=== PATIENT | male | born 1940 | race Caucasian/White ===

== ENCOUNTER 2017-08-15 10:23 | Emergency (ER) | payer MEDICARE ==
[2017-08-15 10:38] VITALS: BP 116/63
--- NOTE | 2017-08-15 11:01 | UC ---
GI Bleed HPI - HPI Summary HPI Summary: Pt presents with black stools starting 3 days ago. He tells me that for the last 2 months he has had intermittent loose stools/diarrhea. 3 days ago he had a BM and noticed his stool was "mushy" and "jet black". Yesterday his BM was normal. Today his stool was black again. He takes a daily ASA and tells me that for the last 3 weeks he has been taking a motrin at bedtime. Denies fever, chills, SOB, chest pain, abdominal pain, n/v, dysuria, or back pain. - History Of Current Complaint Chief Complaint: UCGU Stated Complaint: DISCOLORED STOOL Time Seen by Provider: 08/15/17 11:00 Onset/Duration: Sudden Onset Severity: Black Tarry Stool Severity Currently: None Pain Intensity: 0 - Allergies/Home medications Allergies/Adverse Reactions: Allergies Allergy/AdvReac Type Severity Reaction Status Date / Time Iodinated Contrast- Oral and Allergy Rash And Verified 08/15/17 10:30 IV Dye Itching iodine Allergy Rash And Verified 08/15/17 10:30 Itching Penicillins Allergy Unknown Verified 08/15/17 10:30 Reaction Details iodine contrast media Allergy See Comment Uncoded 08/15/17 10:30 Home Medications: Home Medications Cholestyramine (with Sugar) [Questran Packet] 4 gm PO DAILY 08/15/17 [History Confirmed 08/15/17] PMH/Surg Hx/FS Hx/Imm Hx Cardiovascular History: Hypertension Psychological History: Anxiety - Surgical History Surgical History: Yes Surgery Procedure, Year, and Place: app. R eye surgery for macular "hole". cataract removal - Family History Known Family History: Positive: Cardiac Disease, Hypertension - Social History Occupation: Retired Lives: With Family Alcohol Use: Daily Alcohol Amount: 5-6 drinks q daily Substance Use Type: None Smoking Status (MU): Light Every Day Tobacco Smoker Type: Cigarettes Amount Used/How Often: 5-6 cig/day - Immunization History Most Recent Tetanus Shot: 2009 Review of Systems Constitutional: Negative Skin: Negative Respiratory: Negative Cardiovascular: Negative Gastrointestinal: Diarrhea Genitourinary: Negative Neurovascular: Negative Neurological: Negative Psychological: Negative All Other Systems Reviewed And Are Negative: Yes Physical Exam - Summary Physical Exam Summary: GENERAL: NAD. WDWN. No pain distress. SKIN: No rashes, sores, lesions, or open wounds. NECK: Supple. Nontender. No lymphadenopathy. CHEST: CTAB. No r/r/w. No accessory muscle use. Breathing comfortably and in no distress. CV: RRR. Without m/r/g. Pulses intact. Brisk cap refill. ABDOMEN: Soft. NTTP. No distention or guarding. No organomegaly. No CVA tenderness. Bowel sounds present NEURO: Alert. CN II-XII grossly intact. PSYCH: Age appropriate behavior. Triage Information Reviewed: Yes Vital Signs: Initial Vital Signs Temp 98.4 F 08/15/17 10:33 Pulse 65 08/15/17 10:33 Resp 18 08/15/17 10:33 BP 116/63 08/15/17 10:33 Pulse Ox 96 08/15/17 10:33 Bleed Course/Dx - Course Course Of Treatment: Advised pt to seek further eval in the ED for potential GI bleed. He was agreeable to this and elected to go by private car. - Differential Dx/Diagnosis Provider Diagnoses: Black tarry stool Discharge - Sign-Out/Discharge Documenting (check all that apply): Discharge/Admit/Transfer - Discharge Plan Condition: Stable Disposition: HOME Referrals: Edy Au MD [Primary Care Provider] - Additional Instructions: Please go to the ER for further evaluation of your black stools - Billing Disposition and Condition Condition: STABLE Disposition: HOME
== END 2017-08-15 11:19 | disposition home or self-care (01) ==
LOC: UCEAST 10:23
DX: K92.1 Melena (principal); Z79.82 Long term (current) use of aspirin; I10 Essential (primary) hypertension; F41.9 Anxiety disorder, unspecified; Z88.0 Allergy status to penicillin; Z91.041 Radiographic dye allergy status; F17.210 Nicotine dependence, cigarettes, uncomplicated
CPT/HCPCS: 99212; G0463

== ENCOUNTER 2017-08-16 05:42 | Observation (INO) | payer MEDICARE ==
[2017-08-16 07:08] LABS: ABS Basophils 0 10^3/ul (0-0.2); ABS Eosinophils 0.1 10^3/ul (0-0.6); ABS Monocytes 0.4 10^3/ul (0-0.8); ABS Neutrophils 3.8 10^3/ul (1.5-7.7); ABS Nucleated RBC 0 10^3/ul; Eosinophil % 2.3 % (0-6); Hematocrit 36 % (42-52); Hemoglobin 12.5 g/dl (14.0-18.0); Lymphocyte % 19.5 % (25-47); Mean Corpuscular HGB Conc 35 g/dl (31-36); Mean Corpuscular Hemoglobin 34 pg (27-31); Mean Corpuscular Volume 98 fL (80-94); Mean Platelet Volume 9.7 um3 (7.4-10.4); Nucleated Red Blood Cells % 0.1; Platelet Count 222 10^3/ul (150-450); Red Blood Count 3.65 10^6/ul (4.0-5.4); Red Cell Distribution Width 13 % (10.5-15); White Blood Count 5.4 10^3/ul (3.5-10.8)
[2017-08-16 07:12] LABS: INR 0.83 (0.77-1.02)
[2017-08-16 07:18] LABS: EGFR Non-African American 59.6 (>60)
[2017-08-16] MEDS ORDERED: Pantoprazole IV* 40 MG IV ONE (07:45)
--- NOTE | 2017-08-16 08:01 | ED ---
GI/ HPI - HPI Summary HPI Summary: Patient here with melena 2 days. He reports he's had diarrhea for the past 6 months. This has been reviewed with his PCP who feels he has anxiety triggering diarrhea. He has xanax which he takes for anxiety but this does not help his diarrhea. He was seen by a GI specialist 1 month ago who prescribed a "pack of powder" for him to take for 2 weeks -he took this for 4 days only as he reports it helped for the first couple days and then stopped helping after that. He went back to GI and they prescribed a different medication that he tried and he said helped for a couple days and then stopped helping so again he stopped taking it. He's had a colonoscopy about 2 years ago without any abnormal findings. He thinks he may have had an endoscope in the past but is not sure. He admits to daily aspirin 81 mg and nightly Aleve PM to help him sleep. He also smokes daily and drinks about 8 ounces of bourbon nightly. He' s been under increased stress recently as his is in the hospital where she has multiple injuries on top of dementia. He's been staying with her nightly. He denies nausea, vomiting, fever, chills, lethargy, rapid heart rate, chest pain, shortness of breath, vomiting. He does wake in the morning hungry at times with "hunger pains". This improves with eating. He denies pain with eating and has not tried any antacids or PPI's on his own. - History of Current Complaint Chief Complaint: EDGIBleed Time Seen by Provider: 08/16/17 06:21 Stated Complaint: DIARRHEA Hx Obtained From: Patient Pain Intensity: 0 - Allergy/Home Medications Allergies/Adverse Reactions: Allergies Allergy/AdvReac Type Severity Reaction Status Date / Time Iodinated Contrast- Oral and Allergy Rash And Verified 08/15/17 10:30 IV Dye Itching iodine Allergy Rash And Verified 08/15/17 10:30 Itching Penicillins Allergy Unknown Verified 08/15/17 10:30 Reaction Details iodine contrast media Allergy See Comment Uncoded 08/15/17 10:30 Home Medications: Home Medications Aspirin EC TAB* [Ecotrin EC Low Dose 81 MG*] 81 mg PO DAILY 08/16/17 [History Confirmed 08/16/17] PMH/Surg Hx/FS Hx/Imm Hx Previously Healthy: Yes Endocrine/Hematology History: Denies: Hx Anticoagulant Therapy - ASA 81 mg daily, Hx Blood Disorders, Hx Blood Transfusions, Hx Diabetes, Hx Thyroid Disease, Hx Anemia, Hx Unexplained Bleeding, Hx Coagulopothy Cardiovascular History: Reports: Hx Hypertension, Other Cardiovascular Problems/ Disorders - low HR - chronic,unremarkable per cards per pt; stress test norm per pt Respiratory History: Reports: Hx Sleep Apnea - CPAP Denies: Hx Asthma, Hx Chronic Obstructive Pulmonary Disease (COPD) GI History: Reports: Other GI Disorders - chronic diarrhea x 6 months; elev bili (chronic) Denies: Hx Cirrhosis, Hx Crohn's Disease, Hx Diverticulosis, Hx Gall Bladder Disease, Hx Gastroesophageal Reflux Disease, Hx Gastrointestinal Bleed, Hx Hiatal Hernia, Hx Irritable Bowel, Hx Ulcer History: Reports: Other Problems/Disorders - intermittent hematuria - seen by urology/scope normal Sensory History: Reports: Hx Contacts or Glasses Opthamlomology History: Reports: Hx Contacts or Glasses Psychiatric History: Reports: Hx Anxiety - xanax TID PRN - Surgical History Surgery Procedure, Year, and Place: appy. R eye surgery for macular "hole". cataract removal Infectious Disease History: No Infectious Disease History: Denies: Hx Hepatitis, Hx Human Immunodeficiency Virus (HIV), History Other Infectious Disease, Traveled Outside the [place] in Last 30 Days - Family History Known Family History: Positive: Cardiac Disease, Hypertension - Social History Occupation: Retired Lives: With Family - has of 50+ yrs - in hospital currently Alcohol Use: Daily Alcohol Amount: 8oz bourbon daily Hx Substance Use: No Substance Use Type: Reports: None Hx Tobacco Use: Yes Smoking Status (MU): Current Every Day Smoker Type: Cigarettes Amount Used/How Often: 5-10 cig/day - depends on stress level Review of Systems Constitutional: Negative - no other areas of bleeding Negative: Fever, Chills, Fatigue Cardiovascular: Negative Negative: Palpitations, Chest Pain Respiratory: Negative Negative: Shortness Of Breath, Cough Positive: Other. Negative: Abdominal Pain, Vomiting, Diarrhea, Nausea Genitourinary: Other - intetrmittent hematuria - painless - assessed by urology Musculoskeletal: Negative Skin: Negative Negative: Bruising Neurological: Negative Positive: Anxious All Other Systems Reviewed And Are Negative: Yes Physical Exam Triage Information Reviewed: Yes Vital Signs On Initial Exam: Initial Vitals Temp Pulse Resp BP Pulse Ox 97.8 F 58 20 125/86 98 08/16/17 05:45 08/16/17 05:45 08/16/17 05:45 08/16/17 05:45 08/16/17 05:45 Vital Signs Reviewed: Yes Appearance: Positive: Well-Appearing, No Pain Distress, Well-Nourished Skin: Positive: Warm, Skin Color Reflects Adequate Perfusion, Dry - no ecchymosis Head/Face: Positive: Normal Head/Face Inspection Eyes: Positive: Normal, EOMI, Conjunctiva Clear - anicteric sclera ENT: Positive: Normal ENT inspection, Hearing grossly normal, Pharynx normal Neck: Positive: Supple, Nontender Respiratory/Lung Sounds: Positive: Clear to Auscultation, Breath Sounds Present Cardiovascular: Positive: Pulses are Symmetrical in both Upper and Lower Extremities, Bradycardia, S1, S2. Negative: Murmur, Rub, Leg Edema Left, Leg Edema Right Abdomen Description: Positive: Nontender, No Organomegaly, Soft Bowel Sounds: Positive: Present, Other - no rectal bleeding per external exam Musculoskeletal: Positive: Normal, Strength/ROM Intact Neurological: Positive: Normal, Sensory/Motor Intact, Alert, Oriented to Person Place, Time, CN Intact II-III Psychiatric: Positive: Anxious Diagnostics - Vital Signs Vital Signs Temp Pulse Resp BP Pulse Ox 08/16/17 07:23 48 112/62 96 08/16/17 07:00 49 96 08/16/17 06:55 52 116/68 96 08/16/17 06:23 52 114/64 97 08/16/17 06:22 55 96 08/16/17 05:45 97.8 F 58 20 125/86 98 - Laboratory Lab Results: Lab Results 08/16/17 08/16/17 08/16/17 Range/Units 06:55 06:55 06:55 WBC 5.4 (3.5-10.8) 10^3/ul RBC 3.65 L (4.0-5.4) 10^6/ul Hgb 12.5 L (14.0-18.0) g/dl Hct 36 L (42-52) % MCV 98 H (80-94) fL MCH 34 H (27-31) pg MCHC 35 (31-36) g/dl RDW 13 (10.5-15) % Plt Count 222 (150-450) 10^3/ul MPV 9.7 (7.4-10.4) um3 Neut % (Auto) 70.5 (38-83) % Lymph % (Auto) 19.5 L (25-47) % [place] % (Auto) 7.1 H (0-7) % Eos % (Auto) 2.3 (0-6) % Baso % (Auto) 0.6 (0-2) % Absolute Neuts (auto) 3.8 (1.5-7.7) 10^3/ul Absolute Lymphs (auto) 1.0 (1.0-4.8) 10^3/ul Absolute Monos (auto) 0.4 (0-0.8) 10^3/ul Absolute Eos (auto) 0.1 (0-0.6) 10^3/ul Absolute Basos (auto) 0 (0-0.2) 10^3/ul Absolute Nucleated RBC 0 10^3/ul Nucleated RBC % 0.1 INR (Anticoag Therapy) 0.83 (0.77-1.02) APTT 30.0 (26.0-36.3) seconds Sodium 137 L (139-145) mmol/L Potassium 3.7 (3.5-5.0) mmol/L Chloride 104 (101-111) mmol/L Carbon Dioxide 28 (22-32) mmol/L Anion Gap 5 (2-11) mmol/L BUN 27 H (6-24) mg/dL Creatinine 1.19 H (0.67-1.17) mg/dL Est GFR ( Amer) 76.6 (>60) Est GFR (Non-Af Amer) 59.6 (>60) BUN/Creatinine Ratio 22.7 H (8-20) Glucose 114 H (70-100) mg/dL Calcium 9.0 (8.6-10.3) mg/dL Total Bilirubin 2.10 H (0.2-1.0) mg/dL AST 19 (13-39) U/L ALT 17 (7-52) U/L Alkaline Phosphatase 47 (34-104) U/L Total Protein 5.9 L (6.4-8.9) g/dL Albumin 3.7 (3.2-5.2) g/dL Globulin 2.2 (2-4) g/dL Albumin/Globulin Ratio 1.7 (1-3) Blood Type Antibody Screen 08/16/17 Range/Units 06:55 WBC (3.5-10.8) 10^3/ul RBC (4.0-5.4) 10^6/ul Hgb (14.0-18.0) g/dl Hct (42-52) % MCV (80-94) fL MCH (27-31) pg MCHC (31-36) g/dl RDW (10.5-15) % Plt Count (150-450) 10^3/ul MPV (7.4-10.4) um3 Neut % (Auto) (38-83) % Lymph % (Auto) (25-47) % [place] % (Auto) (0-7) % Eos % (Auto) (0-6) % Baso % (Auto) (0-2) % Absolute Neuts (auto) (1.5-7.7) 10^3/ul Absolute Lymphs (auto) (1.0-4.8) 10^3/ul Absolute Monos (auto) (0-0.8) 10^3/ul Absolute Eos (auto) (0-0.6) 10^3/ul Absolute Basos (auto) (0-0.2) 10^3/ul Absolute Nucleated RBC 10^3/ul Nucleated RBC % INR (Anticoag Therapy) (0.77-1.02) APTT (26.0-36.3) seconds Sodium (139-145) mmol/L Potassium (3.5-5.0) mmol/L Chloride (101-111) mmol/L Carbon Dioxide (22-32) mmol/L Anion Gap (2-11) mmol/L BUN (6-24) mg/dL Creatinine (0.67-1.17) mg/dL Est GFR ( Amer) (>60) Est GFR (Non-Af Amer) (>60) BUN/Creatinine Ratio (8-20) Glucose (70-100) mg/dL Calcium (8.6-10.3) mg/dL Total Bilirubin (0.2-1.0) mg/dL AST (13-39) U/L ALT (7-52) U/L Alkaline Phosphatase (34-104) U/L Total Protein (6.4-8.9) g/dL Albumin (3.2-5.2) g/dL Globulin (2-4) g/dL Albumin/Globulin Ratio (1-3) Blood Type O Positive Antibody Screen Negative Result Diagrams: 08/16/17 06:55 08/16/17 06:55 Lab Statement: Any lab studies that have been ordered have been reviewed, and results considered in the medical decision making process. GIGU Course/Dx - Course Course Of Treatment: Patient's labs reveal slight decrease in H&H from previous labs in April 2017. Coags are normal as are LFT's. Continues to have elevated bilirubin (pt reports this is chronic - Gilbert's syndrome?). His vital signs do not indicate acute hemorrhage. He denies abdominal pain but does report morning hunger pains (duodenal bleed?). With positive stool occult blood test, protonix was initiated here in the ED and patient will be admitted to hospital service with consult from GI later today (spoke w/ Dr. Edgar and Dr. Diana). Patient is reluctant to come into the hospital as he has been caring for his however he eventually agrees. Will initiate IV fluids to keep IV line open as well as WAM protocol as he admits to drinking daily - no concerns at this time and he has taken a xanax already today - asked him to keep staff abreast his anxiety sx so we may provide medication PRN. Will keep patient NPO in the meantime in the event he has an endoscope today. - Diagnoses Provider Diagnoses: GI bleed, EtOH dependence Discharge - Sign-Out/Discharge Documenting (check all that apply): Discharge/Admit/Transfer - Discharge Plan Condition: Stable Disposition: ADMITTED TO [facility] - Billing Disposition and Condition Condition: STABLE Disposition: [facility] – [place], [place]
[2017-08-16] MEDS ORDERED: NS 0.9% 1000 ML* 1,000 ML IV SCH (09:00)
[2017-08-16] MEDS ORDERED: ALPRAZolam TAB* 0.5 MG PO PRN (10:01)
[2017-08-16] MEDS ORDERED: Mouth Piece, Nicotine* 1 EACH CARTRIDGE INH PRN (10:04)
[2017-08-16] MEDS ORDERED: Nicotine Inhaler* 10 MG AMP INH PRN (10:05)
[2017-08-16] MEDS ORDERED: LORazepam TAB(*) 1 MG PO SCH (11:00)
[2017-08-16] MEDS: NS 0.9% 1000 ML* 1,000 ML IV SCH ×2 (12:27→23:22)
[2017-08-16] MEDS: Pantoprazole IV* 80 MG in NS 0.9% 250 ML* 250 ML IVPB SCH (12:27)
[2017-08-16 12:31] LABS: Hematocrit 40 % (42-52); Hemoglobin 13.7 g/dl (14.0-18.0)
[2017-08-16] MEDS ORDERED: Midazolam* 1 MG/ML 10 ML VIAL (10 MG) ONE (13:55)
[2017-08-16] MEDS ORDERED: fentaNYL* 50 MCG/ML 2 ML VIAL (100 MCG VIAL) ONE (13:55)
[2017-08-16 18:37] LABS: Hematocrit 39 % (42-52); Hemoglobin 13.2 g/dl (14.0-18.0)
--- NOTE | 2017-08-16 19:38 | HP ---
CC: Dr. Edy Au * HISTORY AND PHYSICAL: DATE OF ADMISSION: 08/16/17 PRIMARY CARE PROVIDER: Dr. Edy Au. ATTENDING PHYSICIAN: Dr. Deanna Diana * (dictated by Paola Streeter NP). CHIEF COMPLAINT: Dark tarry diarrhea. HISTORY OF PRESENT ILLNESS: Mr. Godfrey is a 77-year-old male with a past medical history significant for hypertension, who presented to the emergency room with complaints of dark tarry diarrhea. The patient states that he had 2 stools 3 and 4 days ago that were dark and tarry. He reports yesterday and today that his stools were no longer dark and tarry. He denies any fevers, chills, chest pain, cough, shortness of breath, nausea, vomiting. He reports diarrhea for 6 months since his fell and fractured her hip. He states that he had been following with GI and his primary care doctor, who felt that the diarrhea may be secondary to anxiety. He states that he has tried a couple of medications that worked for few days and then stopped working, so he is no longer taking any medications for this. The patient also states he had 1 episode of possible hematuria few days ago, but this has resolved. The patient is anxious right now as his has fallen and fractured her other hip and is currently in the hospital. The patient states that he takes a baby aspirin daily in addition to Aleve PM nightly to help him sleep. He denies any Motrin or ibuprofen use. Due to his dark stools, he decided to present to the emergency room for further evaluation of his symptoms. While in the emergency room, the patient had labs showing a slight drop in his hemoglobin and hematocrit from his previous labs that were done approximately 4 months ago. He received normal saline and was given IV Protonix. He had a stool for occult blood that was positive. His total bilirubin that is elevated , but this is chronically elevated per the patient. Due to the patient's suspected GI bleed, the hospitalists were asked to evaluate him for admission. PAST MEDICAL HISTORY: 1. Hypertension. 2. Chronically elevated bilirubin level. PAST SURGICAL HISTORY: 1. Status post appendectomy. 2. Status post right eye surgery for repair of macular hole. 3. Status post bilateral cataract extractions. MEDICATIONS: Include: 1. Lisinopril 40 mg oral daily. 2. Chlorthalidone 12.5 mg oral daily. 3. Aspirin 81 mg oral daily. 4. Xanax 0.5 mg t.i.d. to q.i.d. as needed for anxiety. 5. Triamcinolone 0.1% cream topically twice daily as needed. ALLERGIES: PENICILLIN and IODINE. FAMILY HISTORY: The patient's mother passed at age 85 from myocardial infarction. Denies any family history of diabetes mellitus. The patient's father had a history of lung cancer and brother with a history of colon cancer. SOCIAL HISTORY: The patient smokes 5 to 10 cigarettes daily and he has smoked for many years. He drinks 6 to 8 ounces of bourbon almost daily. He denies recreational drug use. His Kesha Godfrey or his daughter, Yasmeen Hamlin will be his surrogate decision makers in the event he is unable to make decisions for himself. REVIEW OF SYSTEMS: I performed an 11-point review of systems, all the pertinent positives and negatives are mentioned in the history of present illness. The remaining review of systems are negative. PHYSICAL EXAMINATION GENERAL APPEARANCE: The patient is alert, pleasant, and appears to be in no acute distress. VITAL SIGNS: Temperature 97.8, heart rate 50, respiratory rate 18, O2 sat 97% on room air, blood pressure 108/64. HEENT: Normocephalic, atraumatic. Pupils are equal and reactive to light. Extraocular movements are intact. RESPIRATORY: There is no accessory muscle use. The lungs are clear to auscultation bilaterally. CARDIOVASCULAR: Regular rate and rhythm. S1 and S2 present. There are no murmurs, rubs, or gallops heard. ABDOMEN: Soft, nontender, nondistended. Bowel sounds present x4. EXTREMITIES: There is no extremity edema. DP and PT pulses are 2+ and symmetric. MUSCULOSKELETAL: There is no clubbing or cyanosis noted. The patient exhibits good strength in all extremities. NEUROLOGICAL: The patient is alert and oriented x4. Cranial nerves II through XII are grossly intact. PSYCHOLOGICAL: The patient is calm and cooperative. He is little anxious about being admitted. SKIN: There are no rashes or abnormalities seen. DIAGNOSTIC STUDIES/LABORATORY DATA: Sodium 137, potassium 3.7, chloride 104, CO2 28, BUN 27, creatinine 1.19, glucose 114. White blood cell count 5.4, hemoglobin 12.5, hematocrit 36, and platelet count 222. Total bilirubin 2.10. Stool for occult blood positive. IMPRESSION: Mr. Godfrey is a 77-year-old male with past medical history significant for hypertension, who presents to the emergency room with complaints of dark tarry stools. He will be admitted as an inpatient for suspected upper gastrointestinal bleed. ASSESSMENT/PLAN: 1. Gastrointestinal bleed. Due to the dark color of the patient's stools, I suspect this is an upper gastrointestinal bleed. He has a slight drop in his hemoglobin and hematocrit from 14 and 40 respectively in April 2017 to 12.5 and 36 today. He will be seen in consultation by Dr. Edgar for possible endoscopy later today. I will keep him n.p.o. in case he has an endoscopy later today. He received IV bolus of Protonix in the emergency room. He will be started on a Protonix drip. He will have 2 large [address] IVs in place. We will check orthostatic vital signs. He will have his H and H trended every 6 hours. 2. Hypertension. In the setting of a possible GI bleed, we are going to hold the patient's chlorthalidone and lisinopril. 3. Elevated creatinine. The patient's creatinine is slightly elevated above his baseline. He will get IV fluids. We will recheck his labs in the morning. I suspect he is slightly dehydrated. 4. Anxiety. Continue as-needed Xanax. 5. Alcohol abuse. The patient drinks 6-8 ounces of bourbon daily. We will put him on a WAM protocol. 6. Tobacco abuse. Patient will have nicotine replacement available as needed. He has been encouraged to stop smoking. 7. Fluids, electrolytes and nutrition. The patient is n.p.o. 8. Code status. Full code. 9. DVT prophylaxis. The patient is at high risk and will have SCDs only. His chemical DVT prophylaxis is contraindicated in the setting of a GI bleed. 10. Disposition. Inpatient. TIME SPENT: Time for this admission was approximately 60 minutes, greater than half of that was spent with the patient discussing medications, past medical history and the events leading up to his arrival today and performing a physical examination. The case has been reviewed with the attending, Dr. Diana, who agrees with the plan of care. Reviewed by LEESA BEASLEY 08/17/1740 [id number]/[facility] #: [id number] CAROLANND
--- NOTE | 2017-08-16 22:39 | CONS ---
GASTROENTEROLOGY CONSULT: DATE: CONSULTING PHYSICIAN: Edy Au REASON FOR CONSULT: Melena beginning 5 or 6 days ago. 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 After a few days, it began to alarm him. He felt a little weak. There was no syncope. He came to the emergency room and was found to have heme-positive stool. His hemoglobin was 12.5 down from 14.0 three months ago and BUN was 27 up from 22. He is also taking a baby aspirin and Aleve each night (for the last 6 to 7 weeks ) and does drink considerable bourbon. He has never had any alcohol related medical issues. He is concurrently being seen as an outpatient for loose stools (also a complaint in 2004). Questran did not help. Xanax did not help. In May 2015, he had colonoscopy by Dr Jon because of reported family history of colon cancer. 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 It appeared low risk. PAST MEDICAL HISTORY: 1. Smoking - he continues 1/2 to 1 pack a day. Low-dose CT in March 2015 was negative. 2. Alcohol abuse - no sequelae. 3. History of heartburn - he recalls taking Prevacid a few years back for about a year. He is not taking anything currently. MEDICATIONS: As an outpatient: 1. Lisinopril 40. 2. Chlorthalidone 12.5. 3. Aspirin 81. 4. Aleve 220. 5. Xanax 0.5 t.i.d. 6. A recent trial of cholestyramine was ineffective. REVIEW OF SYSTEMS: It is notable in July 2004 when he had a colonoscopy, the listed indication was chronic diarrhea. He has also been evaluated for sleep apnea by Dr. Pedroza in 2008 and for hematuria by Dr. Fry. He is being treated for hypertension. He has had cataract surgery. There is no history of TB, hemoptysis, [place], syncope, arrhythmia, or blood thinners. Aortic ultrasound in September 2013 was negative. PHYSICAL EXAM: He is an older man with a slightly smoker's voice, anxious, in no acute distress. He has no adenopathy. Lungs are clear. Heart sounds are regular. The abdomen is symmetric, soft, and nontender. Rectal deferred. Extremities show no edema. Neurologic is nonfocal in regards to orientation, cranial nerves and movement of all 4 extremities. LABORATORY DATA: A followup CBC showed hemoglobin 13.7, hematocrit 40, MCV 98. INR is 0.83. Albumin 3.7. LFTs normal. Bilirubin 2.10, consistent with other results as in bilirubin 3.0 on 05/09/17 and 2.0 on 11/02/16. IMPRESSION AND PLAN: This 77-year-old man who recently began taking Aleve on top of a baby aspirin has had melena. He has not had any hemodynamic instability, but 5 days of melena should be investigated and an OBV admission appears prudent given multiple risk factors for GI bleeding and his age. [id number]/[facility] #: [id number] MTDD
[2017-08-17 01:18] LABS: Hematocrit 34 % (42-52)
[2017-08-17] MEDS: Pantoprazole IV* 80 MG in NS 0.9% 250 ML* 250 ML IVPB SCH ×2 (01:18→10:00)
[2017-08-17 03:25] VITALS: BP 108/54
[2017-08-17] MEDS ORDERED: Thiamine TAB* 100 MG TAB PO SCH (09:00)
[2017-08-17] MEDS ORDERED: Folic Acid TAB* 1 MG PO SCH (09:00)
[2017-08-17] MEDS ORDERED: Multivitamins/Minerals TAB PO SCH (09:00)
--- NOTE | 2017-08-17 12:24 | PRO ---
DATE: 08/16/17. - ROOM #[id number] REFERRING PHYSICIAN: Edy Au* PROCEDURE: Upper gastrointestinal endoscopy and CLOtest +Bx of gastric greater curvature and Weaver's segment. INDICATIONS: This 77-year-old man, reported black stools for 5 days. He felt little weak. This morning his stool was formed, very dark, but not as black as it had been preceding couple of days. He smokes half-a-pack a day and drinks considerable Tama. He also takes a baby aspirin and Aleve, a half to one each night over the last 6 to 8 weeks. He has been quite stressed as his was admitted to the hospital 9 days ago after fracturing the hip. The opposite hip was fractured 6 months ago. He says he took an acid griselda for about a year, 3 years ago. ENDOSCOPIST: Dr. Edgar. MEDICATIONS: Midazolam 10, fentanyl 75. FINDINGS: He is an older man, in no overt distress, although quite anxious asking many, many questions about hospital restrictions and regulations and where he could spend the night. He did agree that he would not be discharged today and not attempt to drive. EGD: Larynx - limited symmetric views. Esophagus - easily entered and the mucosa is normal in the upper and mid esophagus. The squamocolumnar junction is at 37 and is somewhat loose with a minimal hiatal hernia. During withdrawal 2 biopsies were taken at 38 cm from visually defined Weaver's segment. There was no ulcer there. There was no mass or nodule. Stomach - a papillated texture to the distal fundus and body was seen. There were no erosions or ulcers in the stomach. A CLOtest was taken and two biopsies of the greater curvature proximal antrum. There was an extrinsic compression apparent at 8 o'clock orientation in the mid antrum. It was smooth without any mucosal interruption and did not appear potentially related to any symptom. There were no ulcers or scars in the antrum. Duodenum - the bulb had a very prominent Abida's gland, has had folds with erythema. There was no blood in the bulb and no ulceration per se. Getting around the apex to the bulb was easy. In the third portion of the duodenum, mid portion at a 9 o'clock orientation, there was an ulcer seeming to be over the papilla or the area with the intramural common bile duct. It was 8 or 9 mm fairly, discretely punched out with a minimal red spot at the base. There was no clot or bleeding evident. It appeared benign with no surrounding abnormality. No biopsy there was indicated. IMPRESSION: 1. Small hiatal hernia. 2. 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 3. Gastritis - CLOtest pending. 4. Duodenal ulcer - atypical location, but appears typical peptic lesion, though it would be warranted to recheck in 2 to 3 months. Continuing the proton pump infusion and then twice a day PPI for 2 weeks as indicated. Would hold aspirin 5 to 7 days and discontinue Aleve permanently. Addendum: Weaver's benign and Clotest negative, SOB negative from digital rectal [id number] #: [id number] [facility]
--- NOTE | 2017-08-18 07:32 | DS ---
DISCHARGE SUMMARY: DATE OF ADMISSION: 08/16/17 DATE OF DISCHARGE: 08/17/17 HOSPITAL STATUS: Observation. PROVIDER: Vira Grewal NP ATTENDING PHYSICIAN: Dr. Neely * (report dictated by Vira Grewal NP). PRIMARY CARE PROVIDER: Dr. Edy Au. GI CONSULT: Dr. Edgar. DISCHARGE DIAGNOSES: 1. Upper gastrointestinal bleed, found to have a duodenal ulcer. 2. Weaver's esophagus. 3. Gastritis with a negative CLOtest. 4. Blood loss anemia. SECONDARY DIAGNOSES: 1. Hypertension. 2. Chronically elevated bilirubin level. DISCHARGE MEDICATIONS: 1. Lisinopril 40 mg p.o. daily. 2. Chlorthalidone 12.5 mg p.o. daily. 3. Xanax 0.5 mg t.i.d. to 4 times a day p.r.n. anxiety. 5. Triamcinolone 0.1% cream topical b.i.d., p.r.n. New medication: 1. Omeprazole 40 mg p.o. b.i.d. Medication on hold: 1. Aspirin 81 mg daily. Per the patient, he takes this prophylactically. He was recommended to hold it until he follows up with his primary care provider. HISTORY OF PRESENT ILLNESS AND HOSPITAL COURSE: Please see history and physical by Paola Fitzgerald NP for full admission details, but in summary, this is a 77-year-old male with a past medical history significant for hypertension, history of presented to the emergency department with complaints of black tarry stool on 08/16/17, reporting he had 2 stools 3 and 4 days ago that were black and tarry, reporting the day of admission and the prior day that his stools were no longer black and tarry. He denied any fever, chills, chest pain, dizziness, shortness of breath, nausea or vomiting. He reports he has had diarrhea for 6 months since his fell and fractured her hip, she is currently admitted to [facility] in the rehab unit. He reports he has been seen by GI through his primary care provider and thought the diarrhea was secondary to anxiety. Per the admission history and physical, the patient had reported one episode of possible hematuria few days ago, but this has since resolved. The patient reports that he takes baby aspirin in addition to Aleve PM. There is also a question of alcohol use. The patient was admitted to the hospitalist service for upper GI bleed. On admission, it was noted that his hemoglobin had dropped since April, as it was noted in April his hemoglobin was 14 and on admission yesterday was 12.5. H and H's were trended which remained stable throughout the hospitalization and there was no need for blood transfusion. He had an upper endoscopy by Dr. Edgar yesterday, which showed a duodenal ulcer, nonbleeding, Weaver's esophagus and gastritis. This morning is my first time meeting Mr. Godfrey. First thing this morning, I received a call from the nurse who stated the patient was very agitated and very upset as he wanted to be discharged at 7 a.m. this morning. He refused his morning blood work. I was not able to see the patient up until about 9 a.m. this morning in which the patient reported he was going to leave AMA unless I discharge him. Upon reviewing his labs and noted he did have a stable H and H at midnight as well as I spoke to supervisor assembling, Dr. Feng, the patient is stable for discharge to home. He has had no further dark bloody tarry stools. His H and H is stable. I did report to the patient it was noted that his creatinine was a little up from the last time it was checked back in April as it was noted to be 1.09 in April of this year and on admission was 1.19. He did receive some fluids, most likely this is secondary to dehydration as the patient reports that he has been having a lot of diarrhea and does not drink a lot of fluids. Again, the patient has refused to have labs drawn this morning. This kidney dysfunction was discussed with the patient and I did encourage the patient to stay to have his labs drawn this morning, but he is refusing at this time and states he will do it tomorrow or Tuesday as an outpatient and the results will go to Dr. Au. The patient reports that he is under a lot of stress with his currently in rehab and his grandson was recently diagnosed with cancer and is under a lot of stress. I have discussed with the patient that I would like him to follow up with his primary care provider within 4 to 7 days as well as supervisor assembling , Dr. Edgar, would like to see him back in the office. He has been given these numbers and a detailed discharge plan. I have asked the patient to hold his aspirin 81 mg daily until he sees his provider as he reports that he takes this for prophylactic reasons and does not have a history of coronary artery disease or stroke. DISCHARGE PLAN: 1. The patient is stable for discharge to home. 2. Follow up labs with a CBC and a BMP tomorrow or Tuesday with results to primary care provider. 3. Plan to hold aspirin 81 mg daily until followup with the primary. 4. Followup with Dr. Edgar. The patient was instructed to call his office for followup appointment. TIME SPENT: Approximately 60 minutes was spent on this discharge. VIRA GREWAL NP [id number]/[facility] #: [id number] SURAJ
== END 2017-08-17 09:55 | disposition home or self-care (01) ==
LOC: ED 05:42 → INTOOBSV 11:25 → MED 11:25
PROVIDERS: ADMIT Internal Medicine; ATTEND Internal Medicine
PROC: 0DB98ZX Excision of Duodenum, Via Natural or Artificial Opening Endoscopic, Diagnostic (ICD-10-PCS; principal; 2017-08-16)
PROC: 0DB58ZX Excision of Esophagus, Via Natural or Artificial Opening Endoscopic, Diagnostic (ICD-10-PCS; 2017-08-16)
DX: K92.2 Gastrointestinal hemorrhage, unspecified (principal); K22.719 Barrett's esophagus with dysplasia, unspecified; K29.70 Gastritis, unspecified, without bleeding; K26.9 Duodenal ulcer, unspecified as acute or chronic, without hemorrhage or perforation; F10.20 Alcohol dependence, uncomplicated; I10 Essential (primary) hypertension; E80.7 Disorder of bilirubin metabolism, unspecified; Z90.89 Acquired absence of other organs; Z79.82 Long term (current) use of aspirin; F41.9 Anxiety disorder, unspecified; D50.0 Iron deficiency anemia secondary to blood loss (chronic); F17.210 Nicotine dependence, cigarettes, uncomplicated
CPT/HCPCS: 36415; 80053; 82272; 85014; 85018; 85025; 85610; 85730; 86850; 86900; 86901; 87077; 88305; 96365; 96366; 99156; 99157; 99284; A9270-GY; G0378; J2250; J3010

== ENCOUNTER 2018-10-25 06:52 | Day surgery (SDC) | payer MEDICARE ==
--- NOTE | 2018-10-22 18:24 | HP ---
CC: Dr. Edy Au; Dr. Siddharth Tovar * ADMITTING HISTORY AND PHYSICAL: DATE OF ADMISSION: 10/25/18 ADMITTING DIAGNOSES: 1. Acute renal insufficiency. 2. Right hydronephrosis with possible mass, right proximal ureter. PLANNED PROCEDURES: Right retrograde, right ureteroscopy, and right stent insertion. SURGEON: Dr. Fry. ADMITTING HISTORY AND PHYSICAL: Braulio Godfrey is a 78-year-old gentleman with a history of chronic heavy smoking who was recently noted to have worsening renal function in the form of increased serum creatinine, which had increased from a baseline of 1.19 to 1.78 and subsequently 1.83. Renal sonogram had revealed severe right hydronephrosis and a CT scan revealed right hydronephrosis with increased density in the proximal right ureter consistent with mass or hemorrhage. Since he has not not had any gross hematuria, this is unlikely to represent hemorrhage and given his smoking history, he certainly would be at higher risk for urothelial carcinoma involving the ureter or renal pelvis. The other possibility is that this may represent a ureteropelvic junction obstruction, although I think this is the less likely possibility, although I cannot definitely see any dilatation of the proximal ureter. PAST MEDICAL HISTORY: Significant for: 1. Hypertension. 2. History of GI bleed secondary to ulcer. 3. Sleep apnea. 4. History of bradycardia. MEDICATIONS ON ADMISSION: 1. Chlorthalidone 12.5 mg daily. 2. Alprazolam 0.5 mg half to 1 tablet 4 times a day as needed. 3. Lisinopril 40 mg daily. 4. Omeprazole 40 mg twice a day. 5. CPAP device. ALLERGIES AND INTOLERANCES: 1. Intravenously administered IODINATED CONTRAST. 2. PENICILLIN. 3. CHANTIX. 4. PREVACID. PAST SURGICAL HISTORY: Significant for appendectomy. SOCIAL HISTORY: Smoking history: He is a chronic smoker with approximately 60 - pack-year smoking history. FAMILY HISTORY: Negative for bladder or kidney cancer. REVIEW OF SYSTEMS: He is, otherwise, in fairly good health. There is no history of diabetes mellitus or any other major systemic illness. He denies any chest pain or shortness of breath. His last cardiac evaluation was in January [address] Tovar and I have reviewed the notes of that visit, and it seems that in terms of a cardiac standpoint, he was in fairly stable condition. PHYSICAL EXAMINATION GENERAL: Reveals a pleasant elderly gentleman. VITAL SIGNS: Blood pressure is 146/84, pulse 84 per minute and regular, temperature 98 degrees Fahrenheit, oxygen saturation is 91% on room air. LUNGS: Clear bilaterally. CARDIOVASCULAR: Regular rate and rhythm. S1 and S2. ABDOMEN: Soft with mild right flank tenderness. IMPRESSION: A 78-year-old chronic heavy smoker with new onset of right hydronephrosis associated with worsening renal function and a possible mass in the right proximal ureter. PLAN: Right retrograde, right ureteroscopy, and right stent insertion. [id number]/CPS #: [id number] MTDD
[~2018-10-25 06:52] MED LIST: Buffered Lidocaine 1% SYRIN* 1 ML/SYRINGE INTRADERM ONE; Lactated Ringers 1000 ML Bag* 1,000 ML IV SCH
[2018-10-25] MEDS ORDERED: Levofloxacin 500 MG IVPREMIX(* 500 MG/100 ML BAG IVPB ONE (07:27)
[2018-10-25] MEDS ORDERED: Buffered Lidocaine 1% SYRIN* 1 ML/SYRINGE INTRADERM ONE (07:27)
[2018-10-25] MEDS ORDERED: Propofol* 10 MG/ML 20 ML BTL ONE (08:06)
[2018-10-25] MEDS ORDERED: Lidocaine 2% PF * 5 ML VIAL ONE (08:06)
[2018-10-25] MEDS ORDERED: Midazolam* 1 MG/ML 2 ML VIAL (2 MG) ONE (08:07)
[2018-10-25] MEDS ORDERED: fentaNYL* 50 MCG/ML 2 ML VIAL (100 MCG VIAL) ONE (08:07)
[2018-10-25] MEDS ORDERED: OXYTOCIN* 10 UNITS/ML 1 ML VIAL ONE (08:08)
[2018-10-25] MEDS ORDERED: Iohexol 180 (CONTRAST) 10 ML SDV IV ONE ×2 (08:33→09:43)
[2018-10-25] MEDS ORDERED: Dexamethasone IV* 4 MG/ML 1 ML (4 MG) ONE (09:32)
[2018-10-25] MEDS ORDERED: Ketorolac INJ* 30 MG/ML 1 ML VIAL ONE (09:32)
[2018-10-25] MEDS ORDERED: Ondansetron INJ* 2 MG/ML VIAL ONE (09:32)
[2018-10-25] MEDS ORDERED: Atropine 1MG/ML INJ* 1 ML VIAL ONE (09:32)
[2018-10-25] MEDS ORDERED: Rocuronium* 10 MG/ML VIAL ONE ×2 (09:38→09:58)
[2018-10-25] MEDS ORDERED: Sugammadex * 200 MG/2 ML VIAL IV PUSH ONE (09:39)
[2018-10-25] MEDS ORDERED: Sugammadex * 500 MG/5 ML VIAL IV PUSH ONE (09:40)
[2018-10-25] MEDS ORDERED: Furosemide IV* 10 MG/ML 2 ML VIAL (20 MG) ONE (09:51)
[2018-10-25] MEDS ORDERED: Naloxone* 0.4 MG/ML 1 ML VIAL IV PRN (10:26)
[2018-10-25] MEDS ORDERED: oxyCODONE TAB* 5 MG TAB PO PRN (10:26)
[2018-10-25] MEDS ORDERED: Acetaminophen TAB* 325 MG PO PRN (10:26)
[2018-10-25] MEDS ORDERED: fentaNYL* 50 MCG/ML 2 ML VIAL (100 MCG VIAL) IV PRN (10:26)
[2018-10-25] MEDS ORDERED: DiMENhydriNATE IV* 50 MG/ML VIAL IV PUSH PRN (10:26)
[2018-10-25] MEDS ORDERED: Lidocaine 2% JELLY* 6 ML JELLY TOPICAL ONE (10:33)
[2018-10-25] MEDS ORDERED: Acetaminophen TAB* 325 MG ONE (12:26)
[2018-10-25 12:52] VITALS: BP 141/65
--- NOTE | 2018-10-25 13:18 | OP ---
CC: Dr. Au * DATE OF OPERATION: 10/25/18 - [facility] DATE OF : 44 SURGEON: Roger Fry MD ANESTHESIOLOGIST: Dr. Lisa. ANESTHESIA: General. PRE-OP DIAGNOSES: 1. Right hydronephrosis. 2. Probable obstructing tumor, right proximal ureter. 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 OPERATIVE PROCEDURE: Cystoscopy, right retrograde pyelogram, right ureteral dilatation, right ureteroscopy, and right stent insertion. COMPLICATIONS: None. STENT USED: A 7-[place] stent 28 cm black silicone stent, right ureter. SPECIMENS: Washings from right proximal ureter for cytology. OPERATIVE FINDINGS: 1. Urethral strictures. 2. High-grade obstruction, right proximal ureter with filling defect consistent with probable transitional cell neoplasm, right proximal ureter. POSTOPERATIVE CONDITION: Stable. INDICATIONS: Braulio Godfrey is a 78-year-old gentleman with a longstanding smoking history, who had been evaluated by Dr. Au for an increased serum creatinine. Dr. Au then obtained an ultrasound, which showed severe right hydronephrosis and I subsequently saw him with a noncontrast CT, which ruled out any calculi in the ureter. Because of his smoking history, my concern was that this may represent a neoplasm of the urothelium involving the proximal ureter. DESCRIPTION OF PROCEDURE: After induction of general anesthesia, the patient was placed in dorsal lithotomy position. Sequential compression devices were in place and functioning. Initial cystoscopy revealed 2 strictures in the bulbar urethra, which were carefully dilated. The prostate was moderately enlarged and the bladder was examined and appeared unremarkable. A guidewire was introduced into the right ureter. Retrograde pyelogram revealed fairly large filling defect involving the proximal right ureter and initially there was no upward progression of contrast beyond this filling defect. The ureter itself was fairly narrow and the even the 4- [place] open-ended was fairly snug within the right ureter. The ureter was carefully dilated to 8 [place] and the open-ended catheter was advanced above the point of obstruction. A 6-[place] semi-rigid ureteroscope was introduced and advanced under direct vision. As mentioned previously, the ureter was fairly narrow and even in spite of dilating it to 8 [place], the ureteroscope was advanced to the level of the mid ureter and I did not want to force it more proximally to avoid any potential trauma to the ureter. Washings were obtained from the right proximal ureter and sent for cytology and a 7-[place] 28 cm silicone stent was positioned under fluoroscopic monitoring. My plan is to leave the stent in for 7 to 10 days. If the cytology is diagnostic, then he will require a right nephroureterectomy for treatment of the transitional cell carcinoma that I think is the likely cause of obstruction. If the cytology is inconclusive, then I will bring him back in 10 days or so for a repeat ureteroscopy once the ureter has passively dilated. The patient tolerated the procedure satisfactorily and was transferred back to the recovery area in stable condition. [id number]/CPS #: [id number] MTDD
[2018-10-25] MEDS ORDERED: oxyCODONE/Acetamin 5/325 MG* TAB PO PRN (13:33)
[2018-10-25] MEDS ORDERED: Lactated Ringers 1000 ML Bag* 1,000 ML IV ONE (14:00)
[2018-10-25] MEDS ORDERED: Lactated Ringers 1000 ML Bag* 1,000 ML IV SCH (15:30)
== END 2018-10-25 12:45 | disposition home or self-care (01) ==
LOC: OR 06:52
PROVIDERS: ATTEND Urology
DX: N13.1 Hydronephrosis with ureteral stricture, not elsewhere classified (principal); F17.210 Nicotine dependence, cigarettes, uncomplicated; Z88.0 Allergy status to penicillin; Z88.8 Allergy status to other drugs, medicaments and biological substances; I10 Essential (primary) hypertension; G47.33 Obstructive sleep apnea (adult) (pediatric); R00.1 Bradycardia, unspecified
CPT/HCPCS: 74420; 88112; A9270-GY; C1876; J0461; J1100; J1885; J1940; J1956; J2250; J2405; J2590; J2704; J3010

== ENCOUNTER 2018-11-06 10:49 | Day surgery (SDC) | payer MEDICARE ==
[~2018-11-06 10:49] MED LIST changes: +Famotidine IV* 10 MG/ML 2 ML (20 mg) IV ONE
[2018-11-06] MEDS ORDERED: Levofloxacin 500 MG IVPREMIX(* 500 MG/100 ML BAG IVPB ONE (12:09)
[2018-11-06] MEDS ORDERED: Famotidine IV* 10 MG/ML 2 ML (20 mg) ONE (12:09)
[2018-11-06] MEDS ORDERED: Buffered Lidocaine 1% SYRIN* 1 ML/SYRINGE INTRADERM ONE (12:29)
[2018-11-06] MEDS ORDERED: fentaNYL* 50 MCG/ML 2 ML VIAL (100 MCG VIAL) ONE (13:24)
[2018-11-06] MEDS ORDERED: Dexamethasone IV* 4 MG/ML 1 ML (4 MG) ONE (13:24)
[2018-11-06] MEDS ORDERED: Propofol* 10 MG/ML 20 ML BTL ONE (13:24)
[2018-11-06] MEDS ORDERED: KETAMINE HCL* 50 MG/ML 10 ML VIAL ONE (13:24)
[2018-11-06] MEDS ORDERED: Lidocaine 2% PF * 5 ML VIAL ONE (13:24)
[2018-11-06] MEDS ORDERED: Midazolam* 1 MG/ML 5 ML VIAL (5 MG) ONE (13:25)
[2018-11-06] MEDS ORDERED: Iohexol 180 (CONTRAST) 10 ML SDV IV ONE (13:46)
[2018-11-06] MEDS ORDERED: Ondansetron INJ* 2 MG/ML VIAL ONE (13:57)
[2018-11-06] MEDS ORDERED: Furosemide IV* 10 MG/ML 2 ML VIAL (20 MG) ONE (14:30)
[2018-11-06] MEDS ORDERED: EPHEDrine (Pressors)* 50 MG/ML VIAL ONE (14:33)
[2018-11-06] MEDS ORDERED: Atropine 1MG/ML INJ* 1 ML VIAL ONE (14:34)
[2018-11-06] MEDS ORDERED: fentaNYL* 50 MCG/ML 2 ML VIAL (100 MCG VIAL) IV PRN (15:39)
[2018-11-06] MEDS ORDERED: Ondansetron INJ* 2 MG/ML VIAL IV PRN (15:39)
[2018-11-06] MEDS ORDERED: Naloxone* 0.4 MG/ML 1 ML VIAL IV PRN (15:39)
[2018-11-06] MEDS ORDERED: oxyCODONE/Acetamin 5/325 MG* TAB PO PRN (15:39)
[2018-11-06 17:33] VITALS: BP 145/83
--- NOTE | 2018-11-06 22:18 | OP ---
CC: Dr. Edy Au; Dr. Rajinder Ferraro, at [facility], Department of Urology * DATE OF OPERATION: 11/06/18 - [facility] DATE OF : 44 SURGEON: Dr. Fry. ANESTHESIOLOGIST: Dr. Barraza. ANESTHESIA: General. PRE-OP DIAGNOSES: 1. Right hydronephrosis. 2. Tumor, right proximal ureter. 3. Hematuria. POST-OP DIAGNOSES: 1. Right hydronephrosis. 2. Tumor, right proximal ureter. 3. Hematuria. OPERATIVE PROCEDURE: 1. Cystoscopy. 2. Right stent removal. 3. Right retrograde pyelogram. 4. Right ureteroscopy. 5. Right pyeloscopy. Biopsies from mass right ureter and right stent insertion. COMPLICATIONS: None. BLOOD LOSS: Minimal. STENT USED: 8-[place] stent right ureter. OPERATIVE FINDINGS: Right hydronephrosis secondary to large papillary tumor involving right proximal ureter and ureteropelvic junction (appearance consistent with transitional cell carcinoma). INDICATION: Braulio Godfrey is a 78-year-old gentleman who had been evaluated for an increased creatinine and noted to have right hydronephrosis. My suspicion is that he has a transitional carcinoma involving the proximal right ureter close to the ureteropelvic junction. DESCRIPTION OF PROCEDURE: After induction of general anesthesia, the patient was placed in dorsal lithotomy position. Sequential compression devices were in place and functioning. Initial evaluation revealed a stricture in the bulbar urethra. The prostate is moderately enlarged. The bladder was examined and the previously placed stent was removed. A guidewire was advanced into the proximal right collecting system. Right retrograde pyelogram revealed right hydronephrosis with a filling defect in the area of the proximal right ureter close to the ureteropelvic junction. A 6-[place] semi-rigid ureteroscope was introduced and advanced under direct vision. Just below the ureteropelvic junction, there was a fairly large papillary tumor noted with some friable areas and some areas of increased vascularity noted. This had an appearance of transitional cell carcinoma. The renal pelvis itself was uninvolved, although the tumor extended for a length of approximately at least 2 cm. The ureteroscope was advanced into the renal pelvis, which was examined and appeared unremarkable, although there was some irregularity of the mucosa, which may have been due to the previously placed stent. Washings were obtained and sent for cytology. Next, using a biopsy forceps, multiple biopsies were obtained and sent for histopathology. Once this was done , an 8-[place] stent was introduced and positioned under fluoroscopy with proximal and distal positioning obtained. The patient tolerated the procedure satisfactorily and was transferred back to the recovery area in stable condition. [id number]/CPS #: [id number] MTDD
== END 2018-11-06 17:36 | disposition home or self-care (01) ==
LOC: OR 10:49
PROVIDERS: ATTEND Urology
DX: N13.1 Hydronephrosis with ureteral stricture, not elsewhere classified (principal); N28.89 Other specified disorders of kidney and ureter; R31.9 Hematuria, unspecified; I10 Essential (primary) hypertension; G47.33 Obstructive sleep apnea (adult) (pediatric); F17.210 Nicotine dependence, cigarettes, uncomplicated; Z88.0 Allergy status to penicillin; Z88.8 Allergy status to other drugs, medicaments and biological substances
CPT/HCPCS: 76000; 88112; 88305; C1876; J0461; J1100; J1940; J1956; J2250; J2405; J2704; J3010

== ENCOUNTER 2018-11-21 09:35 | Emergency (ER) | payer MEDICARE ==
[2018-11-21 09:46] VITALS: BP 119/70
--- NOTE | 2018-11-21 10:06 | UC ---
Skin Complaint HPI - HPI Summary HPI Summary: 78 yo male presents with redness and pain to left AC. He tells me that on 11/[address] with contrast in [place] with an IV in his left AC. The next day he developed redness and pain to the area that has been persisting since that time. Today he noticed a hard lump to the area. He is concerned for blood clot. Denies fever, chills, drainage from the site, decreased ROM, - History of Current Complaint Chief Complaint: UCSkin Time Seen by Provider: 11/21/18 10:06 Stated Complaint: LEFT ARM SWELLING , RED Hx Obtained From: Patient Onset/Duration: Gradual Onset Onset Severity: Moderate Current Severity: Moderate Pain Intensity: 7 Pain Scale Used: 0-10 Numeric - Allergy/Home Medications Allergies/Adverse Reactions: Allergies Allergy/AdvReac Type Severity Reaction Status Date / Time Iodinated Contrast Media Allergy Severe Rash And Verified 11/21/18 09:41 [Iodinated Contrast- Oral Itching and IV Dye] iodine Allergy Severe Rash And Verified 11/21/18 09:41 Itching Penicillins Allergy Unknown Unknown Verified 11/21/18 09:41 Reaction Details PMH/Surg Hx/FS Hx/Imm Hx - Additional Past Medical History Additional PMH: Renal carcinoma Cardiovascular History: Hypertension Respiratory History: COPD GI/ History: Gastroesophageal Reflux Psychological History: Anxiety Other History Of: Negative For: Anticoagulant Therapy - ASA 81 mg daily - Surgical History Surgical History: Yes Surgery Procedure, Year, and Place: AGE 8appy. R eye surgery for macular "hole ". BILATERAL cataract removal. 10/28 STENT INSERTION [facility] - Family History Known Family History: Positive: Cardiac Disease, Hypertension - Social History Lives: With Family Alcohol Use: Daily Alcohol Amount: 3 DRINKS/DAY USUALLY Substance Use Type: None Smoking Status (MU): Light Every Day Tobacco Smoker Type: Cigarettes Amount Used/How Often: 5-10 cig/day - depends on stress level 58 YRS Have You Smoked in the Last Year: Yes Household Exposure Type: Cigarettes - Immunization History Most Recent Influenza Vaccination: unknown Most Recent Tetanus Shot: 2009 Most Recent Pneumonia Vaccination: has had Review of Systems All Other Systems Reviewed And Are Negative: Yes Constitutional: Positive: Negative Skin: Positive: Other - redness and pain left AC Respiratory: Positive: Negative Cardiovascular: Positive: Negative Neurovascular: Positive: Negative Musculoskeletal: Positive: Negative Neurological: Positive: Negative Psychological: Positive: Negative Physical Exam - Summary Physical Exam Summary: GENERAL: NAD. WDWN. No pain distress. SKIN: LEFT AC with mild erythema extending from distal AC to proximal AC space. Approx 2.0cm oval shaped firm nodule that is TTP. No upper or lower arm edema. No open wound or drainage. No warmth or streaking. CHEST: No accessory muscle use. Breathing comfortably and in no distress. CV: Pulses intact radial and ulnar. Cap refill <2seconds MSK: LEFT shoulder and elbow FROM without pain. 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 NEURO: Alert. Sensations intact hand and all fingers. PSYCH: Age appropriate behavior. Triage Information Reviewed: Yes Vital Signs: Initial Vital Signs Temp 98.7 F 11/21/18 09:43 Pulse 69 11/21/18 09:43 Resp 16 11/21/18 09:43 BP 119/70 11/21/18 09:43 Pulse Ox 100 11/21/18 09:43 Vital Signs Reviewed: Yes Course/Dx - Course Course Of Treatment: Suspect superficial thrombophlebitis - will get US to confirm. 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 I told him that we will call him with results. US:FINDINGS: VEINS: There is occlusive thrombus noted within the basilic vein. 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 SOFT TISSUES: Unremarkable. OTHER FINDINGS: None. IMPRESSION: OCCLUSIVE THROMBUS NOTED WITHIN THE BASILIC VEIN. US confirms superficial thrombophlebitis. Notified pt of results. Advised to continue using the arm and applying ice. Recommend recheck on tuesday with PCP. - Diagnoses Provider Diagnosis: Basilic vein thrombosis Discharge - Sign-Out/Discharge Documenting (check all that apply): Patient Departure All imaging exams completed and their final reports reviewed: Yes - Discharge Plan Condition: Stable Disposition: HOME Patient Education Materials: Superficial Thrombophlebitis (ED) Referrals: Edy Au MD [Primary Care Provider] - 3 Days Additional Instructions: If you develop a fever, shortness of breath, chest pain, new or worsening symptoms - please call your PCP or go to the ED immediately. - Billing Disposition and Condition Condition: STABLE Disposition: Home
== END 2018-11-21 12:10 | disposition home or self-care (01) ==
LOC: UCEAST 09:35
DX: I82.612 Acute embolism and thrombosis of superficial veins of left upper extremity (principal); I10 Essential (primary) hypertension; J44.9 Chronic obstructive pulmonary disease, unspecified; K21.9 Gastro-esophageal reflux disease without esophagitis; F41.9 Anxiety disorder, unspecified; F17.210 Nicotine dependence, cigarettes, uncomplicated; Z88.0 Allergy status to penicillin
CPT/HCPCS: 99211; G0463

== ENCOUNTER 2020-10-09 12:08 | Observation (INO) ==
[2020-10-09] MEDS ORDERED: NS 0.9% 1,000 ML IV SCH (12:45)
[2020-10-09] MEDS ORDERED: Clindamycin 600 MG/D5W BAG IV ONE (13:00)
[2020-10-09] MEDS ORDERED: fentaNYL 100 mcg/2 ml 50 MCG/ML VIAL ONE (14:03)
[2020-10-09] MEDS ORDERED: Midazolam 5 mg/5 ml VIAL 1 mg/ml 5 ml VIAL (5 mg) ONE ×2 (14:03→14:37)
[2020-10-09] MEDS ORDERED: Lidocaine 1% VIAL 10 MG/ML VIAL ONE (14:07)
[2020-10-09] MEDS ORDERED: Metoprolol Tartrate 5 mg VIAL 5 ml VIAL (1 mg/ml) ONE (15:50)
[2020-10-10 11:54] LABS: Calcium 9.5 mg/dL (8.6-10.3); EGFR African American 61.8 (>60); EGFR Non-African American 51.1 (>60); Magnesium 1.4 mg/dL (1.9-2.7); Potassium 4.2 mmol/L (3.5-5.0)
[2020-10-10] MEDS ORDERED: Magnesium Sulf 4 GM/100 ML IV 4,000 MG/100 ML BAG IVPB ONE (12:30)
[2020-10-10 14:56] VITALS: BP 148/89
== END 2020-10-10 15:55 | disposition home or self-care (01) ==
LOC: MEDTELE 12:08 → CHICATH 12:08
PROVIDERS: ADMIT Specialist; ATTEND Internal Medicine

== ENCOUNTER 2023-02-08 11:49 | Inpatient (IN) ==
[2023-02-08] MEDS ORDERED: Albuterol 2.5mg/3 ml (0.083%) NEB.SOLN INH ONE (12:27)
[2023-02-08 12:32] LABS: ABS Basophils 0.1 10^3/uL (0.0-0.1); ABS Lymphocytes 0.3 10^3/uL (1.0-4.8); ABS Monocytes 0.6 10^3/uL (0.0-1.1); ABS Neutrophils 17.6 10^3/uL (1.5-7.6); Eosinophil % 0.1 %; Hematocrit 36.7 % (38-53); Hemoglobin 12.7 g/dL (13.2-16.3); Lymphocyte % 1.6 %; Mean Corpuscular Hemoglobin 33.8 pg (27-33); Mean Corpuscular Hgb Conc 34.5 g/dL (31-36); Mean Platelet Volume 9.2 fL (7.5-11.2); Platelet Count 250 10^3/uL (150-450); Red Blood Count 3.75 10^6/uL (4.06-5.63); Red Cell Distribution Width 13.3 % (12-17); White Blood Count 18.5 10^3/uL (3.6-10.2)
[2023-02-08 13:10] LABS: High Sens Troponin Baseline 89 pg/mL (<20)
[2023-02-08 13:48] LABS: ALT 15 U/L (7-52); Albumin 3.5 g/dL (3.2-5.2); Albumin/Globulin Ratio 1.3 (1-3); Alkaline Phosphatase 63 U/L (35-149); Anion Gap 12 mmol/L (2-16); Blood Urea Nitrogen 19 mg/dL (6-24); CO2 Carbon Dioxide 21 mmol/L (22-32); Calcium 8.3 mg/dL (8.6-10.3); Chloride 104 mmol/L (101-111); Creatinine, Serum 1.24 mg/dL (0.67-1.17); Globulin 2.7 g/dL (2-4); Glucose 103 mg/dL (70-100); Sodium 137 mmol/L (135-145); Total Bilirubin 2.3 mg/dL (0.2-1.0); Total Protein 6.2 g/dL (6.4-8.9); eGFR CKD-EPI 58.4 (>60)
[2023-02-08] MEDS ORDERED: Magnesium Hydroxide LIQ 30 ML UDC PO PRN (15:23)
[2023-02-08] MEDS ORDERED: Ondansetron 4 mg VIAL 2 MG/ML 2 ml VIAL IV PRN (15:23)
[2023-02-08 15:50] LABS: Potassium Redraw 3.2 mmol/L (3.5-5.0)
[2023-02-08] MEDS ORDERED: Piperacillin/Tazobac 3.375 BAG 3.375 GM/100 ML BAG IV ONE (15:51)
[2023-02-08] MEDS ORDERED: Lactated Ringers 1000 ml BAG 1,000 ML IV SCH (16:00)
[2023-02-08] MEDS ORDERED: Zosyn per Pharmacy NOTE FOLLOW UP SCH (16:00)
[2023-02-08] MEDS ORDERED: Lactated Ringers 1000 ml BAG 1,000 ML IV ONE (16:14)
[2023-02-08] MEDS ORDERED: Potassium Chlor 20 meq TAB.ER PO ONE (16:57)
[2023-02-08 17:04] LABS: Erythrocyte Sed Rate 23 mm/Hr (0-19)
[2023-02-08 18:09] LABS: C Reactive Protein 109.01 mg/L (<8.01)
[2023-02-08 18:55] LABS: Ferritin 187.1 ng/mL (24-336)
[2023-02-08] MEDS: ZOSYN 3.375 GM Q8H per EXTENDED INFUSION IV SCH (22:13)
[2023-02-09] MEDS: ZOSYN 3.375 GM Q8H per EXTENDED INFUSION IV SCH ×3 (05:34→22:22)
[2023-02-09 06:04] LABS: Albumin 3.4 g/dL (3.2-5.2); Calcium 8.2 mg/dL (8.6-10.3); Magnesium 1.3 mg/dL (1.9-2.7); Potassium 3.2 mmol/L (3.5-5.0)
[2023-02-09 06:10] LABS: Albumin/Globulin Ratio 1.4 (1-3); Creatinine, Serum 1.3 mg/dL (0.67-1.17); Globulin 2.4 g/dL (2-4); Total Protein 5.8 g/dL (6.4-8.9); eGFR CKD-EPI 55.2 (>60)
[2023-02-09 06:22] LABS: Urine Appearance Clear; Urine Bilirubin Negative (Negative); Urine Blood 1+ (Negative); Urine Color Yellow; Urine Glucose Negative (Negative); Urine Ketones Negative (Negative); Urine Nitrite Negative (Negative); Urine Protein 1+(30 mg/dL) (Negative); Urine Specific Gravity 1.018 (1.002-1.030); Urine Urobilinogen Negative (Negative)
[2023-02-09 06:23] LABS: Urine Bacteria Absent (Absent); Urine Red Blood Cell 1+(3-5/hpf) (Absent); Urine Squamous Epithelial Cell Present (Absent); Urine White Blood Cell Trace(0-5/hpf) (Absent)
[2023-02-09] MEDS ORDERED: Magnesium Sulf 4 GM/100 ML IV 4,000 MG/100 ML BAG IVPB ONE (07:40)
[2023-02-09] MEDS ORDERED: Influenza vaccine *QUAD* *2023-24* 0.5 ML SYRINGE IM ONE (09:00)
[2023-02-09] MEDS: KCL 20 MEQ/100 ML IVPREMIX 20 MEQ/100 ML BAG IV SCH ×2 (11:04→12:45)
[2023-02-09] MEDS ORDERED: Potassium Chloride IV 40 MEQ in Lactated Ringers 1000 ml BAG 1,000 ML IVPB SCH (12:00)
[2023-02-09 19:27] LABS: Calcium 8.2 mg/dL (8.6-10.3); Creatinine, Serum 1.3 mg/dL (0.67-1.17); Potassium 4.7 mmol/L (3.5-5.0); eGFR CKD-EPI 55.2 (>60)
[2023-02-10] MEDS: ZOSYN 3.375 GM Q8H per EXTENDED INFUSION IV SCH (05:40)
[2023-02-10 08:30] LABS: ABS Basophils 0.1 10^3/uL (0.0-0.1); ABS Eosinophils 0.1 10^3/uL (0.0-0.5); ABS Lymphocytes 0.5 10^3/uL (1.0-4.8); ABS Monocytes 0.5 10^3/uL (0.0-1.1); ABS Neutrophils 10.1 10^3/uL (1.5-7.6); ABS Nucleated RBC 0.01 10^3/ul; Eosinophil % 0.9 %; Hematocrit 36.2 % (38-53); Hemoglobin 12.3 g/dL (13.2-16.3); Mean Corpuscular Hemoglobin 33.7 pg (27-33); Mean Corpuscular Volume 99.1 fL (80-97); Mean Platelet Volume 9.4 fL (7.5-11.2); Nucleated Red Blood Cells % 0.1 %/100WBC (0.0-0.8); Platelet Count 249 10^3/uL (150-450); Red Blood Count 3.66 10^6/uL (4.06-5.63); Red Cell Distribution Width 13.4 % (12-17); White Blood Count 11.3 10^3/uL (3.6-10.2)
[2023-02-10 09:33] LABS: Calcium 8.5 mg/dL (8.6-10.3); Creatinine, Serum 1.2 mg/dL (0.67-1.17); Potassium 4.1 mmol/L (3.5-5.0); eGFR CKD-EPI 60.8 (>60)
[2023-02-10] MEDS ORDERED: Albuterol 2.5mg/3 ml (0.083%) NEB.SOLN INH PRN (11:07)
[2023-02-10] MEDS: SPIRIVA Respimat (tiotropium) 2.5 mcg/inh Inhaler INH SCH (15:02)
[2023-02-10] MEDS ORDERED: Furosemide 20 mg/2 ml IV VIAL IV ONE (17:37)
[2023-02-10] MEDS: Sulfamethox/Trimethoprim DS TAB 800/160 mg PO SCH (20:24)
[2023-02-11] MEDS ORDERED: Furosemide 20 mg/2 ml IV VIAL IV ONE (07:17)
[2023-02-11] MEDS: SPIRIVA Respimat (tiotropium) 2.5 mcg/inh Inhaler INH SCH (07:34)
[2023-02-11 08:25] LABS: Calcium 8.4 mg/dL (8.6-10.3); Creatinine, Serum 1.32 mg/dL (0.67-1.17); Magnesium 1.7 mg/dL (1.9-2.7); Potassium 3.4 mmol/L (3.5-5.0); eGFR CKD-EPI 54.2 (>60)
[2023-02-11] MEDS: Sulfamethox/Trimethoprim DS TAB 800/160 mg PO SCH (09:51)
[2023-02-11] MEDS ORDERED: Potassium Chlor 20 meq TAB.ER PO ONE (10:16)
[2023-02-11] MEDS ORDERED: Potassium Chloride LIQUID 20 MEQ/15 ML LIQUID PO ONE (11:00)
[2023-02-11 14:44] VITALS: BP 132/87
== END 2023-02-11 16:39 | disposition home or self-care (01) | DRG 871 ==
LOC: ED 11:49 → EDHOLD 11:49 → SUATTDRO 15:23 → MEDTELE 16:02
PROVIDERS: ADMIT Hospitalist; ATTEND Internal Medicine

== ENCOUNTER 2024-03-16 09:28 | Observation (INO) ==
[2024-03-16 10:18] LABS: Activated Partial Thrombo Time 34.2 seconds (26.0-38.0); INR 1.47 (0.85-1.14)
[2024-03-16 10:30] LABS: ABS Basophils 0.1 10^3/uL (0.0-0.1); ABS Eosinophils 0.1 10^3/uL (0.0-0.5); ABS Lymphocytes 0.5 10^3/uL (1.0-4.8); ABS Monocytes 0.5 10^3/uL (0.0-1.1); ABS Neutrophils 5.2 10^3/uL (1.5-7.6); ABS Nucleated RBC 0.02 10^3/ul; Eosinophil % 0.9 %; Hematocrit 20.6 % (38-53); Hemoglobin 6.4 g/dL (13.2-16.3); Lymphocyte % 8.5 %; Mean Corpuscular Hemoglobin 24.5 pg (27-33); Mean Corpuscular Hgb Conc 31.1 g/dL (31-36); Mean Corpuscular Volume 78.9 fL (80-97); Mean Platelet Volume 8.3 fL (7.5-11.2); Nucleated Red Blood Cells % 0.3 %/100WBC (0.0-0.8); Platelet Count 297 10^3/uL (150-450); Red Blood Count 2.62 10^6/uL (4.06-5.63); Red Cell Distribution Width 18.6 % (12-17); White Blood Count 6.3 10^3/uL (3.6-10.2)
[2024-03-16 10:51] LABS: ALT 18 U/L (7-52); AST 26 U/L (13-39); Albumin 4.1 g/dL (3.2-5.2); Alkaline Phosphatase 84 U/L (35-149); Anion Gap 13 mmol/L (2-16); Blood Urea Nitrogen 45 mg/dL (6-24); CO2 Carbon Dioxide 20 mmol/L (22-32); Calcium 9.4 mg/dL (8.6-10.3); Chloride 103 mmol/L (101-111); Creatinine, Serum 2.21 mg/dL (0.67-1.17); Globulin 2.1 g/dL (2-4); Glucose 136 mg/dL (70-100); Potassium 4.9 mmol/L (3.5-5.0); Sodium 136 mmol/L (135-145); Total Bilirubin 1.2 mg/dL (0.2-1.0); Total Protein 6.2 g/dL (6.4-8.9)
[2024-03-16] MEDS: Pantoprazole VIAL 40 MG VIAL IV ONE (12:46)
[2024-03-16] MEDS: Pantoprazole 80 mg in NS BAG 80 MG/250 ML BAG IV ONE (12:57)
[2024-03-16] MEDS: Lactated Ringers 1000 ml BAG 1,000 ML IV ONE (13:03)
[2024-03-16 13:50] LABS: % Iron Saturation 3 % (15-55); .Transferrin 426 mg/dL (203-362); Iron < 20 ug/dL (50-212); Total Iron Binding Capacity 596 mcg/dL (250-450); Unsaturated Iron Binding 576 ug/dL
[2024-03-16 14:08] LABS: Ferritin 8.7 ng/mL (24-336)
[2024-03-16 14:11] LABS: Folate > 20.00 ng/mL (5.90-24.80)
[2024-03-16 14:12] LABS: Vitamin B12 1434 pg/mL (180-914)
[2024-03-16 16:33] LABS: Hemoglobin 7.6 g/dL (13.2-16.3); Mean Corpuscular Hemoglobin 26.1 pg (27-33); Mean Corpuscular Hgb Conc 33.1 g/dL (31-36); Mean Corpuscular Volume 78.8 fL (80-97); Mean Platelet Volume 8.2 fL (7.5-11.2); Platelet Count 228 10^3/uL (150-450); Red Blood Count 2.93 10^6/uL (4.06-5.63); Red Cell Distribution Width 17.8 % (12-17); White Blood Count 6.5 10^3/uL (3.6-10.2)
[2024-03-16] MEDS: Iron Sucrose 200 MG in NS 0.9% 100 ml BAG 100 ML IVPB ONE (17:17)
[2024-03-16] MEDS: Mometasone/Formoter 100/5 MDI INH SCH ×2 (17:54→19:42)
[2024-03-16] MEDS: Pantoprazole VIAL 40 MG VIAL IV SCH (19:55)
[2024-03-17 06:53] LABS: Calcium 8.8 mg/dL (8.6-10.3); Creatinine, Serum 2.1 mg/dL (0.67-1.17); Potassium 4.4 mmol/L (3.5-5.0); eGFR CKD-EPI 30.8 (>60)
[2024-03-17] MEDS ORDERED: Midazolam 5 mg/5 ml VIAL 1 mg/ml 5 ml VIAL (5 mg) ONE (08:52)
[2024-03-17] MEDS ORDERED: fentaNYL 100 mcg/2 ml 50 MCG/ML VIAL ONE (08:52)
[2024-03-17] MEDS ORDERED: Flumazenil 0.5 mg/5 ml 0.1 MG/ML 5 ml VIAL IV PRN (09:04)
[2024-03-17] MEDS ORDERED: Naloxone 0.4 mg VIAL 0.4 mg/ml 1 ml VIAL IV PUSH PRN (09:04)
[2024-03-17 12:21] LABS: Hematocrit 24.3 % (38-53)
[2024-03-17] MEDS: Ferric Gluconate IV 125 MG in NS 0.9% 100 ml BAG 100 ML IVPB ONE (14:40)
[2024-03-17] MEDS: fentaNYL 100 mcg/2 ml 50 MCG/ML VIAL IV SLOW PU ONE (14:54)
[2024-03-17] MEDS: Lactated Ringers 1000 ml BAG 1,000 ML IV ONE (14:55)
[2024-03-17] MEDS: Ondansetron 4 mg VIAL 2 MG/ML 2 ml VIAL IV ONE (14:56)
[2024-03-17] MEDS: Midazolam 10 mg/10 ml VIAL 1 mg/ml 10 ml VIAL (10 mg) IV SLOW PU ONE (14:56)
[2024-03-18 09:25] LABS: Hematocrit 26.1 % (38-53); Hemoglobin 8.6 g/dL (13.2-16.3)
[2024-03-18 10:41] LABS: Calcium 9.4 mg/dL (8.6-10.3); Creatinine, Serum 1.75 mg/dL (0.67-1.17); eGFR CKD-EPI 38.4 (>60)
[2024-03-18] MEDS: Ferric Gluconate IV 250 MG in NS 0.9% 250 ml 200 ML IVPB SCH (10:55)
[2024-03-18] MEDS: Albuterol HFA INHALER 8 gm MDI INH PRN (10:57)
[2024-03-18] MEDS: Furosemide 40 mg/4 ml IV VIAL IV SLOW PU ONE (11:46)
[2024-03-18] MEDS: Albuterol 2.5mg/3 ml (0.083%) NEB.SOLN INH ONE (16:12)
[2024-03-18] MEDS: Albuterol/Ipratropium NEB.SOL (2.5/0.5 MG) 3 ML NEB.SOLN INH SCH ×2 (17:27→18:47)
[2024-03-18 19:49] LABS: Hematocrit 25.3 % (38-53); Hemoglobin 8.2 g/dL (13.2-16.3)
[2024-03-19 06:31] LABS: Hematocrit 24.2 % (38-53); Hemoglobin 7.9 g/dL (13.2-16.3)
[2024-03-19 06:42] LABS: Calcium 8.8 mg/dL (8.6-10.3); Creatinine, Serum 1.76 mg/dL (0.67-1.17); Potassium 3.7 mmol/L (3.5-5.0); eGFR CKD-EPI 38.1 (>60)
[2024-03-19] MEDS ORDERED: Albuterol/Ipratropium NEB.SOL (2.5/0.5 MG) 3 ML NEB.SOLN INH PRN (11:25)
[2024-03-19] MEDS: Furosemide 40 mg/4 ml IV VIAL IV SLOW PU ONE (11:30)
[2024-03-19 15:00] VITALS: BP 110/63
== END 2024-03-19 15:47 | disposition home or self-care (01) ==
LOC: EDHOLD 09:28 → ED 09:28 → SUATTDRO 12:21 → MED 14:28
PROVIDERS: ADMIT Internal Medicine; ATTEND Student in an Organized Health Care Education/Training Program